=== PATIENT | female | born 1970 | race Caucasian/White ===

== ENCOUNTER 2021-08-03 07:28 | Day surgery (SDC) | payer OTHER ==
[~2021-08-03 07:28] MED LIST: TOPROL XL50 M1 PO
== END 2021-08-03 11:30 | disposition home or self-care (01) ==
LOC: AMB-ENDOS 07:28
PROVIDERS: ATTEND Surgery
DX: K62.89 Other specified diseases of anus and rectum (principal); K64.8 Other hemorrhoids; Z20.822 Contact with and (suspected) exposure to COVID-19